=== PATIENT | male | born 1985 | race Caucasian/White ===

== ENCOUNTER 2020-02-09 16:09 | Outpatient (CLI) | payer OTHER, SELFPAY ==
--- NOTE | ~2020-02-09 | CT_ITS ---
EXAMINATION: CT abdomen pelvis wo/w con DATE: 02/09/2020 17:02 INDICATION: Gross hematuria TECHNIQUE: Computed tomography (CT) of the abdomen and pelvis was performed without and with 130 cc O mnipaque 350 intravenous contrast. The dose-length product was 1499.37 mGy-cm. Automated exposure con trol and iterative reconstruction technique were employed. COMPARISON: None. FINDINGS: Lung bases are unremarkable. Heart size is normal. No significant pleural or pericardial ef fusion. The liver, spleen, pancreas, adrenal glands and kidneys are unremarkable. Normal appendix. Bladder is unremarkable. Ureters are normal in course and caliber. No renal/ureteral stones. No significant vas cular abnormality. No lymphadenopathy. No acute osseous abnormality. Nonobstructive bowel gas pattern . No free air or free fluid. IMPRESSION: 1. No findings to account for hematuria. No acute abdominal abnormality. Reviewed, dictated and finalized at location A.
== END 2020-02-09 16:10 | disposition home or self-care (01) ==
PROVIDERS: Visit Provider Urology
DX: R31.0 Gross hematuria (principal)
CPT/HCPCS: 74178; Q9967